=== PATIENT | male | born 1965 | race Caucasian/White ===

== ENCOUNTER 2020-07-12 09:41 | Observation (INO) ==
[2020-07-12] MEDS ORDERED: *HR* FentaNYL (PF) 100 MCG/2 ML VIAL IVP ONE ×2 (10:06→14:10)
[2020-07-12] MEDS ORDERED: *HR* Midazolam HCl 2 MG/2 ML VIAL IVP ONE (10:06)
[2020-07-12 10:11] LABS: Basophils # 0.1 K/mcL (0.0-0.2); Basophils % 1.1 %; Eosinophils # 0.5 K/mcL (0.0-0.6); Eosinophils % 5.3 %; Hematocrit 49.2 % (37.5-50.1); Hemoglobin 16.5 g/dL (12.9-16.9); Immature Granulocytes % 1.1 % (0-4); Lymphocytes # 2.3 K/mcL (0.6-4.6); Lymphocytes % 24.4 %; Mean Corpuscular HGB Conc 33.5 g/dL (31.6-35.5); Mean Corpuscular Hemoglobin 31.3 pg (28.0-33.3); Mean Corpuscular Volume 93.2 fL (83.0-100.0); Mean Platelet Volume 9.4 fL (9.4-12.4); Monocytes # 0.8 K/mcL (0.0-1.3); Monocytes % 8.9 %; Neutrophils # 5.6 K/mcL (1.6-8.9); Platelet Count 284 K/mcL (140-400); Red Blood Count 5.28 M/mcL (4.19-5.50); Red Cell Distribution Width 12.3 % (11.5-14.5); Segmented Neutrophils % 59.2 %; White Blood Count 9.4 K/mcL (4.3-11.1)
[2020-07-12] MEDS ORDERED: 0.9 % Sodium Chloride 500 ML ONE (10:58)
[2020-07-12] MEDS ORDERED: Ondansetron 4 MG/2 ML VIAL IVP PRN (15:18)
[2020-07-12] MEDS ORDERED: Acetaminophen 325 MG TABLET PO PRN (15:18)
[2020-07-12] MEDS ORDERED: Naloxone 0.4 MG/ML INJ IVP PRN (15:18)
[2020-07-12] MEDS ORDERED: Ipratropium/Albuterol Neb 3 ML IH PRN (16:17)
[2020-07-12] MEDS: *HR* HYDROcodone/Acet 5/325 mg TABLET PO PRN (17:18)
[2020-07-12] MEDS: Nicotine 21 MG PATCH.TD24 TD SCH (17:19)
[2020-07-12] MEDS: Budesonide/Formoterol 160/4.5 1 PUFF INH IH SCH (20:24)
[2020-07-13] MEDS: *HR* HYDROcodone/Acet 5/325 mg TABLET PO PRN ×2 (00:04→06:32)
[2020-07-13] MEDS: Budesonide/Formoterol 160/4.5 1 PUFF INH IH SCH (07:31)
[2020-07-13] MEDS: Nicotine 21 MG PATCH.TD24 TD SCH (08:28)
[2020-07-13 10:26] VITALS: BP 130/78
== END 2020-07-13 12:46 | disposition home or self-care (01) ==
LOC: 2ANU 09:41 → RAD 09:41 → SUATTDRO 15:01
PROVIDERS: ADMIT Student in an Organized Health Care Education/Training Program; ATTEND Internal Medicine